=== PATIENT | female | born 1975 | race Caucasian/White ===

== ENCOUNTER 2020-05-24 22:33 | Emergency (ER) | payer MEDICARE, SELFPAY ==
[2020-05-24 22:38] VITALS: BP 111/74; PULSE 60; RESP 20; TEMP 36.8; O2SAT 98
[2020-05-25 00:43] VITALS: BP 123/75; PULSE 57; RESP 18; O2SAT 98
--- NOTE | 2020-05-25 00:44 | ED.HA ---
HPI - Headache General Chief Complaint: Headache Stated Complaint: migraine Time Seen by Provider: 05/25/20 00:43 History of Present Illness HPI Narrative: Severe SWENSON for the past 4 hours. Located behind the eyes. Associated with visual aura and nausea. She has had similar migraines in the past. She feels that it started due to the pain she was having from anal fissures, which she is seeing a surgeon for. Related Data Allergies Allergy/AdvReac Type Severity Reaction Status Date / Time Penicillins Allergy Severe Stopped Verified 10/24/19 22:05 Breathing amoxicillin [From Augmentin] Allergy Intermediate Hives Verified 10/24/19 22:05 clavulanic acid Allergy Intermediate Hives Verified 10/24/19 22:05 [From Augmentin] tramadol Allergy Intermediate Hives / Verified 10/24/19 22:05 Red Face Review of Systems Review of Systems: All systems reviewed & are unremarkable except as noted in HPI and below Constitutional: Constitutional: Reports fever(s) Cardiovascular: Cardiovascular: Denies chest pain Respiratory: Respiratory: Denies dyspnea Gastrointestinal: Gastrointestinal: Denies abdominal pain Genitourinary: Genitourinary: Denies dysuria [facility] Past Medical History Medical History (Updated 05/26/20 @ 00:00 by Background [place]) Anxiety Asthma Bronchitis Celiac disease Chronic back pain Chronic neck pain Chronic pain COPD (chronic obstructive pulmonary disease) Fibromyalgia IBS (irritable bowel syndrome) Opiate use UTI (urinary tract infection) Surgical History Surgical History History of hysterectomy Hx of tonsillectomy Social History Social History Smoking status: Never smoker Gender identity (if verbalized by the patient): Female Exam Const: General: healthy appearing, no acute distress and alert Orientation/consciousness: patient oriented x3 HENMT: Head: normal to inspection Neck: Neck: normal visual inspection and no lymphadenopathy Chest: Chest palpation & inspection: no tenderness Resp: Effort & Inspection: normal respiratory effort Auscultation: clear to auscultation bilaterally, no rales, no rhonchi and no wheezes Cardio: Jugular venous distension: no JVD Rate: regular rate Rhythm: regular rhythm Heart sounds: no murmurs GI: Inspection: non-distended GI Palp: Yes Soft to palpation and No Tenderness to palpation present (GI) Skin: General skin exam: normal color Neuro: General: patient oriented x3, moves all extremities, no focal motor deficits and CN's II-XI intact bilaterally Speech: normal speech Gait exam (Neuro): Normal gait present Extrem: General: no edema Psych: Appearance: well kempt Affect: normal affect Course Vital Signs Vital signs: Vital Signs Temperature 36.8 C 05/24/20 22:38 Pulse Rate 60 05/24/20 22:38 Respiratory Rate 20 05/24/20 22:38 Blood Pressure 111/74 05/24/20 22:38 Pulse Oximetry 98 05/24/20 22:38 Temperature 36.8 C 05/24/20 22:38 Pulse Rate 88 05/25/20 04:15 Respiratory Rate 17 05/25/20 04:15 Blood Pressure 129/75 05/25/20 04:15 Pulse Oximetry 97 05/25/20 04:15 MDM - Headache MDM Narrative Medical decision making narrative: SWENSON significantly improved with treatment. Similar to past SWENSON with gradual onset. No indication for emergent imaging. Differential Diagnosis Differential diagnosis: Likely migraine and tension headache Medical Records Attestation: I reviewed the patient's medical records. Discharge Plan Discharge Clinical Impression: Migraine Patient Disposition: Home, Self-Care Condition: Stable Instructions: Antibiotic Form Prescriptions: No Action clindamycin HCl 300 mg capsule 300 mg PO Q8H Qty: 30 RF: 0 diphenhydramine HCl [Benadryl] 25 mg capsule 25 mg PO TID PRN (Reason: allergic reaction) 3 Days Qty: 20 RF: 0 famotidine 20 mg tablet
[2020-05-25] MEDS: SODIUM CHLORIDE 0.9% IV 1,000 ML 999 ML IV CONT (01:10)
[2020-05-25] MEDS: KETOROLAC 30 MG/ML VIAL (*BKC) IV PUSH (01:13)
[2020-05-25] MEDS: diphenhydrAMINE HCl INJ 50 MG/ML VIAL IV PUSH (01:13)
[2020-05-25] MEDS: METOCLOPRAMIDE HCL INJ 10 MG/2 ML VIAL IV PUSH (01:14)
[2020-05-25 02:33] VITALS: BP 107/74; PULSE 98; RESP 16; O2SAT 100
[2020-05-25 04:15] VITALS: BP 129/75; PULSE 88; RESP 17; O2SAT 97
== END 2020-05-25 04:15 | disposition home or self-care (01) ==
PROVIDERS: Emergency Provider Emergency Medicine
DX: G43.909 Migraine, unspecified, not intractable, without status migrainosus (principal); K90.0 Celiac disease; J44.9 Chronic obstructive pulmonary disease, unspecified; M79.7 Fibromyalgia; K58.9 Irritable bowel syndrome, unspecified; Z87.440 Personal history of urinary (tract) infections
CPT/HCPCS: 96361; 96374; 96375; 99284; J0131; J1200; J1885; J2765; J7030